=== PATIENT | male | born 1970 | race Caucasian/White ===

== ENCOUNTER 2016-10-21 14:57 | Emergency (ER) | payer OTHER ==
[~2016-10-21 14:57] MED LIST: CYCL1PAK PO; LORTA5 PO
[2016-10-21 15:16] VITALS: BP 122/87; PULSE 122; RESP 16; TEMP 98.4; O2SAT 96
[2016-10-21 15:41] VITALS: BP 112/90; PULSE 112; RESP 16; O2SAT 98
[2016-10-21] MEDS ORDERED: BUPIVACAINE HCL PF 0.5% 10 ML VIAL INFIL ONE (16:00)
[2016-10-21] MEDS ORDERED: TETANUS/DIPHTHERIA TOXOID ADULT 0.5 ML VIAL IM ONE (16:00)
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
[2016-10-21 16:25] LABS: AUTOMATED NEUTROPHIL # 3.3 TH/MM3 (1.8-7.7); BASOPHIL # 0.2 TH/MM3 (0-0.2); BASOPHIL % 2.5 % (0.0-2.0); EOSINOPHIL # 0.4 TH/MM3 (0-0.4); EOSINOPHIL % 4.9 % (0.0-4.0); HEMATOCRIT 38.7 % (39.0-51.0); HEMO FLAGS DIFF FINAL; LYMPH % 35.1 % (9.0-44.0); LYMPHOCYTE # 2.6 TH/MM3 (1.0-4.8); MEAN CORPUSCULAR HEMOGLOBIN 31.6 PG (27.0-34.0); MEAN CORPUSCULAR HGB CONC 33.7 % (32.0-36.0); MONO % 12.6 % (0.0-8.0); NEUT % 44.9 % (16.0-70.0); PLATELET COUNT 229 TH/MM3 (150-450); RED BLOOD COUNT 4.12 MIL/MM3 (4.50-5.90); RED CELL DISTRIBUTION WIDTH 13.6 % (11.6-17.2); WHITE BLOOD COUNT 7.3 TH/MM3 (4.0-11.0)
[2016-10-21 16:31] LABS: AMPHETAMINE, URINE POS (NEG); BARBITURATES, URINE NEG (NEG); COCAINE, URINE NEG (NEG)
--- NOTE | 2016-10-21 16:40 | RADRPT ---
EXAM DATE/TIME: 10/21/2016 16:27 [facility] COMPARISON: No previous studies available for comparison. INDICATIONS : Right hand, 5th digit laceration. MEDICAL HISTORY : None. SURGICAL HISTORY : None. ENCOUNTER: Initial ACUITY: 1 day PAIN SCORE: 10/10 LOCATION: Right hand, 5th digit. FINDINGS: Examination of the fifth digit of the right hand demonstrates no evidence of fracture or dislocation. No radiopaque foreign bodies are seen. There is an old fracture of any of the fifth metacarpal. Th e soft tissues are intact. CONCLUSION: 1. No radiopaque foreign body. 2. Old fracture deformity of the fifth metacarpal. Gilberto Kunz MD on October 21, 2016 at 16:37 Board Certified Radiologist. This report was verified electronically.
[2016-10-21 16:46] LABS: ANION GAP 9 MEQ/L (5-15); AST (GOT) 28 U/L (15-37); BICARBONATE 24.5 MEQ/L (21.0-32.0); BLOOD UREA NITROGEN 8 MG/DL (7-18); CHLORIDE 106 MEQ/L (98-107); GLOMERULAR FILTRATION RATE 85 ML/MIN (>89); POTASSIUM 3.6 MEQ/L (3.5-5.1); SODIUM (NA) 139 MEQ/L (136-145)
[2016-10-21 16:53] LABS: ALKALINE PHOSPHATASE 68 U/L (45-117); ALT (GPT) 22 U/L (12-78); TOTAL BILIRUBIN ADULT 0.3 MG/DL (0.2-1.0)
--- NOTE | 2016-10-21 17:06 | PD ---
Physical Exam Narrative Presents by Dr. Forbes to repair patient's finger laceration. Please see his documentation for full H&P. Data Data Last Documented VS Vital Signs Date Time Temp Pulse Resp B/P Pulse Ox O2 Delivery O2 Flow Rate FiO2 10/21/16 15:41 112 16 112/90 98 Room Air 10/21/16 15:16 98.4 Orders Complete Blood Count With Diff (10/21/16 15:49) Comprehensive Metabolic Panel (10/21/16 15:49) Psych Screen (10/21/16 15:49) Drug Screen, Random Urine (10/21/16 15:49) Alcohol (Ethanol) (10/21/16 15:49) Tetanus/Diphtheria Tox Adult (Tetanus/Di (10/21/16 16:00) Bupivacaine Pf 0.5% Inj (Marcaine Pf 0.5 (10/21/16 16:00) Finger ([id number]) (10/21/16 ) Labs Laboratory Tests Test 10/21/16 16:05 White Blood Count 7.3 TH/MM3 Red Blood Count 4.12 MIL/MM3 Hemoglobin 13.0 GM/DL Hematocrit 38.7 % Mean Corpuscular Volume 94.0 FL Mean Corpuscular Hemoglobin 31.6 PG Mean Corpuscular Hemoglobin 33.7 % Concent Red Cell Distribution Width 13.6 % Platelet Count 229 TH/MM3 Mean Platelet Volume 6.9 FL Neutrophils (%) (Auto) 44.9 % Lymphocytes (%) (Auto) 35.1 % Monocytes (%) (Auto) 12.6 % Eosinophils (%) (Auto) 4.9 % Basophils (%) (Auto) 2.5 % Neutrophils # (Auto) 3.3 TH/MM3 Lymphocytes # (Auto) 2.6 TH/MM3 Monocytes # (Auto) 0.9 TH/MM3 Eosinophils # (Auto) 0.4 TH/MM3 Basophils # (Auto) 0.2 TH/MM3 CBC Comment DIFF FINAL Differential Comment Urine Opiates Screen NEG Urine Barbiturates Screen NEG Urine Amphetamines Screen POS Urine Benzodiazepines Screen NEG Urine Cocaine Screen NEG Urine Cannabinoids Screen POS [facility] Supervised Visit with PHYLLIS: No Narrative Course The patient suffered laceration to the finger. There was no evidence to suggest foreign bodies. Visual, tactile and radiographic exams were unremarkable without evidence of foreign body at this time. There was no evidence of neurovascular injury. The patient had a normal distal vascular exam, and had full normal motor and sensory exams. There was also no evidence or tendon injury , with normal distal full range of motions, flexion, extension, abduction, adduction and opponens. There was no evidence of local joint space involvement at this time. The patient was irrigated with copious sterile normal saline and primary repair was performed. Please see procedure note. The patient was given signs and symptom warnings for infection, such as increasing pain, redness, swelling, associated heat, pus or fever. The patient was warned of possible unseen foreign body and instructed to return immediately if signs or symptoms develop. The patient was given instructions for timely follow up. The patient agreed with plan of care. Procedures Procedure Narrative LACERATION REPAIR LOCATION: Right hand fifth digit palmar surface proximal phalanx LENGTH: Approximately 2.5 cm in total length NUMBER OF STITCHES/KE: 4 stitches combination of simple mattress and simple interrupted REPAIR: Verbal consent was obtained. The area of the laceration was cleaned and prepped. Digital block was performed using Marcaine without epi.. The wound was copiously irrigated and explored without evidence of foreign body, bony involvement, ligament injury, tendon injury, or neurovascular injury. The wound was closed using 5-0 Vicryl. This was a single layer repair. A sterile dressing was applied by nurse. The patient was advised to keep the affected area as clean and dry as possible using soap and water. There were no complications. Patient tolerated the procedure well. Patient Instructions: Care For Your Absorbable Stitches (ED), General Instructions Condition: Stable Yannick Graves Oct 21, 2016 17:06
[2016-10-21 18:51] VITALS: BP 132/80; PULSE 101; RESP 18; O2SAT 98
[2016-10-21 22:37] VITALS: BP 133/75; PULSE 85; RESP 19; O2SAT 98
[2016-10-22 02:00] VITALS: BP 103/58; PULSE 85; RESP 19; O2SAT 96
[2016-10-22] MEDS ORDERED: ACETAMINOPHEN 325 MG TAB PO ONE ×2 (03:15→14:45)
[2016-10-22 06:00] VITALS: BP 105/58; PULSE 71; RESP 18; O2SAT 99
[2016-10-22 11:04] VITALS: BP 100/70; PULSE 89; RESP 18; O2SAT 97
[2016-10-22 15:21] VITALS: BP_SYST 118; BP_SYST 158; BP_DIAS 101; BP_DIAS 72; PULSE 100; PULSE 75; RESP 18; O2SAT 99
[2016-10-22 18:50] VITALS: BP 128/70; PULSE 66; RESP 20; TEMP 98.6; O2SAT 99
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
== END 2016-10-22 18:59 | disposition home or self-care (01) ==
LOC: NEPC 14:57 → NEPJ 10-22 18:59
DX: S61.216A Laceration without foreign body of right little finger without damage to nail, initial encounter (principal); F10.120 Alcohol abuse with intoxication, uncomplicated; F43.21 Adjustment disorder with depressed mood; F19.10 Other psychoactive substance abuse, uncomplicated; F17.200 Nicotine dependence, unspecified, uncomplicated; Z23 Encounter for immunization; Z87.19 Personal history of other diseases of the digestive system; Z86.69 Personal history of other diseases of the nervous system and sense organs; W45.8XXA Other foreign body or object entering through skin, initial encounter
CPT/HCPCS: 12001; 73140; 80053; 80307; 85025; 90471; 90714

== ENCOUNTER 2016-11-30 03:15 | Emergency (ER) | payer OTHER ==
[~2016-11-30] VITALS: Ht 177.8 cm; Wt 77.3 kg
[2016-11-30 03:22] VITALS: BP 101/67; PULSE 89; RESP 14; TEMP 98.2; O2SAT 95
--- NOTE | 2016-11-30 03:39 | PD ---
HPI Chief Complaint: Alcohol/Drug Intoxication Time Seen by Provider: 03:37 Travel History International Travel<30 days: No Contact w/Intl Traveler<30days: No Traveled to known affect area: No History of Present Illness HPI Patient is a 46-year-old male brought into the emergency Department under a Diaz's act due to public intoxication. Patient appears acutely intoxicated, he is cooperative and pleasant but not forthcoming with any information. PFSH Past Medical History GERD: Yes Neurologic: Yes (HX BRAIN INJURY) Seizures: Yes Past Surgical History Eye Surgery: Yes (PROSTHETIC EYE right) Other Surgery: Yes (r shoulder / SCREWS IN THE ANKLES) Social History Alcohol Use: Yes (EVERYDAY) Tobacco Use: Yes (1/2 PPD) Substance Use: Yes (OPIATES AND BENZOS) Allergies-Medications (Allergen,Severity, Reaction): Coded Allergies: No Known Allergies (Unverified , 11/30/16) Reported Meds & Prescriptions Reported Meds & Active Scripts Active Active Prescriptions or Reported Medications Unobtainable Review of Systems ROS Limitations: Intoxication Except as stated in HPI: all other systems reviewed are Neg Physical Exam Narrative GENERAL: Well-developed, well-nourished, alert, intoxicated-appearing male, resting comfortably in no acute distress. SKIN: Focused skin assessment warm/dry. Left lower inner eye lid with an area of healing ecchymosis. HEAD: Atraumatic. Normocephalic. EYES: Pupils equal and round. No scleral icterus. No injection or drainage. Extraocular movements are intact. ENT: No nasal bleeding or discharge. Mucous membranes pink and moist. NECK: Trachea midline. No JVD. CARDIOVASCULAR: Regular rate and rhythm. No murmur appreciated. RESPIRATORY: No accessory muscle use. Clear to auscultation. Breath sounds equal bilaterally. GASTROINTESTINAL: Abdomen soft, non-tender, nondistended. Hepatic and splenic margins not palpable. MUSCULOSKELETAL: No obvious deformities. No clubbing. No cyanosis. No edema. NEUROLOGICAL: Awake and alert. No obvious cranial nerve deficits. Motor grossly within normal limits. Normal speech. PSYCHIATRIC: Appropriate mood and affect; insight and judgment impaired. Data Data Last Documented VS Vital Signs Date Time Temp Pulse Resp B/P Pulse Ox O2 Delivery O2 Flow Rate FiO2 11/30/16 03:22 98.2 89 14 101/67 95 Orders Comprehensive Metabolic Panel (11/30/16 03:33) Iv Access Insert/Monitor (11/30/16 03:33) Alcohol (Ethanol) (11/30/16 03:33) Sodium Chlor 0.9% 1000 Ml Inj (Ns 1000 M (11/30/16 03:45) Sodium Chlor 0.9% 1000 Ml Inj (Ns 1000 M (11/30/16 04:45) Lipase (11/30/16 04:44) Labs Laboratory Tests Test 11/30/16 03:36 Sodium Level 137 MEQ/L Potassium Level 4.2 MEQ/L Chloride Level 105 MEQ/L Carbon Dioxide Level 24.4 MEQ/L Anion Gap 8 MEQ/L Blood Urea Nitrogen 15 MG/DL Creatinine 0.89 MG/DL Estimat Glomerular Filtration 92 ML/MIN Rate Random Glucose 105 MG/DL Calcium Level 8.2 MG/DL Total Bilirubin 0.2 MG/DL Aspartate Amino Transf 91 U/L (AST/SGOT) Alanine Aminotransferase 540 U/L (ALT/SGPT) Alkaline Phosphatase 173 U/L Total Protein 7.3 GM/DL Albumin 3.4 GM/DL Lipase 379 U/L Ethyl Alcohol Level 357 MG/DL [facility] Medical Decision Making Medical Screen Exam Complete: Yes Emergency Medical Condition: Yes Medical Record Reviewed: Yes Interpretation(s) Vital Signs Date Time Temp Pulse Resp B/P Pulse Ox O2 Delivery O2 Flow Rate FiO2 11/30/16 03:22 98.2 89 14 101/67 95 Differential Diagnosis Acute intoxication versus mood disorder versus electrolyte abnormality versus other Narrative Course Patient is a 46-year-old male presenting to the emergency department under a Diaz's act due to public intoxication. Vital signs are stable. Patient appears in no acute distress and is pleasant. Physical examination is benign, no abdominal pain on palpation. Labs ordered and pending to confirm patient is acutely intoxicated. IVF ordered. Alcohol level resulted at 357, second liter of IVF ordered. Chemistry with marked transaminitis compared to prior in September of 2016. Will check lipase, elevation likely secondary to alcohol abuse. Lipase is within normal range. Pt will be allowed to sleep it off, when he can demonstrate safe ambulation he will be discharged from the ED. He was advised to follow up with PCP regarding elevated liver enzymes. He was strongly encouraged to avoid alcohol intake to prevent liver disease. Diagnosis Primary Impression: Alcohol intoxication Qualified Code: F10.920 - Alcohol intoxication, uncomplicated Additional Impression: Abnormal transaminases Referrals: Primary Care Physician Patient Instructions: Abuse of Alcohol (ED), Alcohol Intoxication (DC), Cirrhosis (ED), General Instructions Additional Instructions: Follow-up with your primary doctor or at the [facility] Avoid intake of alcohol to prevent further liver disease Maintain adequate fluid intake Return to the emergency department for any new or worsening symptoms. Med/Other Pt SpecificInfo: No Change to Meds Scripts Unable to Obtain Active Prescriptions or Reported Meds Disposition: 01 DISCHARGE HOME Condition: Stable Cintia Mejía Nov 30, 2016 03:39
[2016-11-30] MEDS ORDERED: SODIUM CHLOR 0.9% 1000 ML INJ 1,000 ML IV ONE ×2 (03:45→04:45)
[2016-11-30 04:21] LABS: ALKALINE PHOSPHATASE 173 U/L (45-117); TOTAL BILIRUBIN ADULT 0.2 MG/DL (0.2-1.0)
[2016-11-30 04:30] LABS: ALT (GPT) 540 U/L (12-78); ANION GAP 8 MEQ/L (5-15); AST (GOT) 91 U/L (15-37); BICARBONATE 24.4 MEQ/L (21.0-32.0); BLOOD UREA NITROGEN 15 MG/DL (7-18); CHLORIDE 105 MEQ/L (98-107); GLOMERULAR FILTRATION RATE 92 ML/MIN (>89); SODIUM (NA) 137 MEQ/L (136-145)
[2016-11-30 04:31] LABS: POTASSIUM 4.2 MEQ/L (3.5-5.1)
[2016-11-30 07:23] VITALS: BP 107/75; PULSE 90; RESP 15; O2SAT 97
== END 2016-11-30 09:31 | disposition home or self-care (01) ==
LOC: NEPD 03:15
DX: F10.120 Alcohol abuse with intoxication, uncomplicated (principal); R74.0 Nonspecific elevation of levels of transaminase and lactic acid dehydrogenase [LDH]; F17.210 Nicotine dependence, cigarettes, uncomplicated
CPT/HCPCS: 80053; 80307; 83690; 96360; 96361; 99284; J7030

== ENCOUNTER 2017-07-30 17:00 | Emergency (ER) | payer MEDICAID, MEDICARE, OTHER ==
[~2017-07-30] VITALS: Ht 185.4 cm; Wt 72.0 kg
[2017-07-30 17:01] VITALS: BP 119/85; PULSE 100; RESP 18; TEMP 98.8; O2SAT 96
[2017-07-30] MEDS ORDERED: PROZ20CA11 PO (20:57)
[2017-07-30] MEDS ORDERED: TRAZ50TA12 PO (20:57)
== END 2017-07-30 17:15 | disposition left against medical advice (07) ==
LOC: NED 17:00
DX: F99 Mental disorder, not otherwise specified (principal)
CPT/HCPCS: 99281

== ENCOUNTER 2017-07-30 20:38 | Emergency (ER) | payer MEDICAID, MEDICARE ==
[2017-07-30 20:40] VITALS: BP 126/84; PULSE 108; RESP 16; TEMP 98.6; O2SAT 96
[2017-07-30] MEDS ORDERED: PROZ20CA11 PO (20:57)
[2017-07-30] MEDS ORDERED: TRAZ50TA12 PO (20:57)
[2017-07-30 20:58] VITALS: BP 134/91; PULSE 102; RESP 16; O2SAT 96
--- NOTE | 2017-07-30 21:08 | PD ---
HPI Chief Complaint: Medical Clearance Time Seen by Provider: 20:53 Travel History International Travel<30 days: No Contact w/Intl Traveler<30days: No Traveled to known affect area: No History of Present Illness HPI The patient is a 46-year-old male who presents to the emergency department for alcohol intoxication. The patient has a long-standing history of alcohol abuse, was drinking red and white wine earlier today, unable to quantify the amount of alcohol he drank. The patient has been to [facility] in the past, however, he is relapsed into drinking alcohol. He states she's been without his psychiatric medications insulin medications for the last 3 weeks. He denies any chest pain, shortness breath, nausea, vomiting , or abdominal pain. He denies any illicit drug use. He denies any suicidal or homicidal ideation. Symptoms are moderate, there are no current alleviating or exacerbating factors. PFSH Past Medical History Diminished Hearing: No GERD: Yes Neurologic: Yes (HX BRAIN INJURY) Seizures: Yes Tetanus Vaccination: < 5 Years Influenza Vaccination: No Past Surgical History Eye Surgery: Yes (PROSTHETIC EYE right) Other Surgery: Yes (r shoulder / SCREWS IN THE ANKLES) Social History Alcohol Use: Yes (EVERYDAY) Tobacco Use: Yes (1/2 PPD) Substance Use: Yes (OPIATES AND BENZOS) Allergies-Medications (Allergen,Severity, Reaction): Coded Allergies: No Known Allergies (Unverified , 11/30/16) Reported Meds & Prescriptions Reported Meds & Active Scripts Active Reported Trazodone (Trazodone HCl) 50 Mg Tab 50 Mg PO HS Prozac (Fluoxetine HCl) 20 Mg Cap 20 Mg PO DAILY Review of Systems Except as stated in HPI: all other systems reviewed are Neg HENT: No: Lightheadedness Cardiovascular: No: Chest Pain or Discomfort Respiratory: No: Shortness of Breath Gastrointestinal: No: Nausea, Vomiting, Abdominal Pain Psychiatric: Positive: Substance Abuse (alcohol abuse), No: Suicidal Ideations , Homicidal Ideation Physical Exam Narrative GENERAL: Awake, alert, pleasant 46-year-old male who appears his stated age and appears intoxicated. SKIN: Focused skin assessment warm/dry. HEAD: Atraumatic. Normocephalic. EYES: Left pupil is 3 mm and reactive. Right eye is prosthetic. ENT: No nasal bleeding or discharge. Mucous membranes pink and moist. Breath smells of alcohol. NECK: Trachea midline. No JVD. CARDIOVASCULAR: Regular rate and rhythm. No murmur appreciated. RESPIRATORY: No accessory muscle use. Clear to auscultation. Breath sounds equal bilaterally. GASTROINTESTINAL: Abdomen soft, non-tender, nondistended. MUSCULOSKELETAL: No obvious deformities. No clubbing. No cyanosis. No edema. Well-healed scar of the lateral aspect the right shoulder with obvious old- appearing deformity. NEUROLOGICAL: Awake and alert. No obvious cranial nerve deficits. Motor grossly within normal limits. Normal speech. Nonfocal. Oriented to person place, but not month or year. PSYCHIATRIC: Appears intoxicated. Data Data Last Documented VS Vital Signs Date Time Temp Pulse Resp B/P (MAP) Pulse Ox O2 Delivery O2 Flow Rate FiO2 07/30/17 20:58 102 16 134/91 (105) 96 07/30/17 20:40 98.6 Orders Orders Complete Blood Count With Diff (07/30/17 21:08) Comprehensive Metabolic Panel (07/30/17 21:08) Alcohol (Ethanol) (07/30/17 21:08) Magnesium (Mg) (07/30/17 21:08) Acetaminophen (Tylenol) (07/30/17 21:30) Ed Discharge Order (07/30/17 22:11) Labs Laboratory Tests Test 07/30/17 21:23 White Blood Count 6.9 TH/MM3 Red Blood Count 4.28 MIL/MM3 Hemoglobin 14.1 GM/DL Hematocrit 40.6 % Mean Corpuscular Volume 94.9 FL Mean Corpuscular Hemoglobin 32.9 PG Mean Corpuscular Hemoglobin Concent 34.6 % Red Cell Distribution Width 13.7 % Platelet Count 252 TH/MM3 Mean Platelet Volume 6.6 FL Neutrophils (%) (Auto) 49.9 % Lymphocytes (%) (Auto) 33.6 % Monocytes (%) (Auto) 10.5 % Eosinophils (%) (Auto) 4.7 % Basophils (%) (Auto) 1.3 % Neutrophils # (Auto) 3.4 TH/MM3 Lymphocytes # (Auto) 2.3 TH/MM3 Monocytes # (Auto) 0.7 TH/MM3 Eosinophils # (Auto) 0.3 TH/MM3 Basophils # (Auto) 0.1 TH/MM3 CBC Comment DIFF FINAL Differential Comment Blood Urea Nitrogen 14 MG/DL Creatinine 1.01 MG/DL Random Glucose 99 MG/DL Total Protein 7.3 GM/DL Albumin 3.6 GM/DL Calcium Level 8.4 MG/DL Magnesium Level 2.1 MG/DL Alkaline Phosphatase 77 U/L Aspartate Amino Transf (AST/SGOT) 38 U/L Alanine Aminotransferase (ALT/SGPT) 26 U/L Total Bilirubin 0.2 MG/DL Sodium Level 139 MEQ/L Potassium Level 3.7 MEQ/L Chloride Level 105 MEQ/L Carbon Dioxide Level 25.1 MEQ/L Anion Gap 9 MEQ/L Estimat Glomerular Filtration Rate 80 ML/MIN Ethyl Alcohol Level 277 MG/DL [facility] Medical Decision Making Medical Screen Exam Complete: Yes Emergency Medical Condition: Yes Medical Record Reviewed: Yes Interpretation(s) Laboratory Tests Test 07/30/17 21:23 White Blood Count 6.9 TH/MM3 Red Blood Count 4.28 MIL/MM3 Hemoglobin 14.1 GM/DL Hematocrit 40.6 % Mean Corpuscular Volume 94.9 FL Mean Corpuscular Hemoglobin 32.9 PG Mean Corpuscular Hemoglobin Concent 34.6 % Red Cell Distribution Width 13.7 % Platelet Count 252 TH/MM3 Mean Platelet Volume 6.6 FL Neutrophils (%) (Auto) 49.9 % Lymphocytes (%) (Auto) 33.6 % Monocytes (%) (Auto) 10.5 % Eosinophils (%) (Auto) 4.7 % Basophils (%) (Auto) 1.3 % Neutrophils # (Auto) 3.4 TH/MM3 Lymphocytes # (Auto) 2.3 TH/MM3 Monocytes # (Auto) 0.7 TH/MM3 Eosinophils # (Auto) 0.3 TH/MM3 Basophils # (Auto) 0.1 TH/MM3 CBC Comment DIFF FINAL Differential Comment Blood Urea Nitrogen 14 MG/DL Creatinine 1.01 MG/DL Random Glucose 99 MG/DL Total Protein 7.3 GM/DL Albumin 3.6 GM/DL Calcium Level 8.4 MG/DL Magnesium Level 2.1 MG/DL Alkaline Phosphatase 77 U/L Aspartate Amino Transf (AST/SGOT) 38 U/L Alanine Aminotransferase (ALT/SGPT) 26 U/L Total Bilirubin 0.2 MG/DL Sodium Level 139 MEQ/L Potassium Level 3.7 MEQ/L Chloride Level 105 MEQ/L Carbon Dioxide Level 25.1 MEQ/L Anion Gap 9 MEQ/L Estimat Glomerular Filtration Rate 80 ML/MIN Ethyl Alcohol Level 277 MG/DL Differential Diagnosis Differential diagnosis includes a intoxication, alcohol abuse, hyponatremia, hypokalemia, dehydration, substance induced mood disorder. Narrative Course IV was established, labs are drawn and sent, and the patient was placed on cardiac telemetry monitoring and continuous pulse oximetry monitoring. Alcohol level was sent to lab. Sodium level is normal. Magnesium level is normal. Alcohol level is elevated at 277. The patient will be allowed to sleep it off. The patient requested to be discharged at 10:10 PM. Nursing staff was able to and bleed the patient, he was able to ambulate without difficulty. The patient states he has money to take a cab home. Therefore, the IV was removed and the patient will be discharged. He is advised to return if symptoms worsen or progress and decrease his alcohol intake. Diagnosis Primary Impression: Alcohol intoxication Qualified Codes: F10.920 - Alcohol use, unspecified with intoxication, uncomplicated Patient Instructions: General Instructions Additional Instructions: Decrease alcohol intake. Follow-up with your primary physician. Return if symptoms worsen or progress. Follow-up at [facility]. Med/Other Pt SpecificInfo: No Change to Meds Disposition: 01 DISCHARGE HOME Condition: Stable Blayne Forbes MD Jul 30, 2017 21:08
[2017-07-30] MEDS ORDERED: ACETAMINOPHEN 500 MG CPLT PO ONE (21:30)
[2017-07-30 21:34] LABS: AUTOMATED NEUTROPHIL # 3.4 TH/MM3 (1.8-7.7); BASOPHIL # 0.1 TH/MM3 (0-0.2); BASOPHIL % 1.3 % (0.0-2.0); EOSINOPHIL # 0.3 TH/MM3 (0-0.4); EOSINOPHIL % 4.7 % (0.0-4.0); HEMATOCRIT 40.6 % (39.0-51.0); HEMOGLOBIN 14.1 GM/DL (13.0-17.0); LYMPH % 33.6 % (9.0-44.0); LYMPHOCYTE # 2.3 TH/MM3 (1.0-4.8); MEAN CELL VOLUME 94.9 FL (80.0-100.0); MEAN CORPUSCULAR HEMOGLOBIN 32.9 PG (27.0-34.0); MEAN CORPUSCULAR HGB CONC 34.6 % (32.0-36.0); MEAN PLATELET VOLUME 6.6 FL (7.0-11.0); MONO % 10.5 % (0.0-8.0); MONOCYTE # 0.7 TH/MM3 (0-0.9); NEUT % 49.9 % (16.0-70.0); PLATELET COUNT 252 TH/MM3 (150-450); RED BLOOD COUNT 4.28 MIL/MM3 (4.50-5.90); RED CELL DISTRIBUTION WIDTH 13.7 % (11.6-17.2); WHITE BLOOD COUNT 6.9 TH/MM3 (4.0-11.0)
[2017-07-30 21:50] LABS: ALBUMIN 3.6 GM/DL (3.4-5.0); BICARBONATE 25.1 MEQ/L (21.0-32.0); BLOOD UREA NITROGEN 14 MG/DL (7-18); CALCIUM 8.4 MG/DL (8.5-10.1); CHLORIDE 105 MEQ/L (98-107); CREATININE 1.01 MG/DL (0.60-1.30); GLOMERULAR FILTRATION RATE 80 ML/MIN (>89); GLUCOSE,RANDOM 99 MG/DL (74-106); MAGNESIUM 2.1 MG/DL (1.5-2.5); SODIUM (NA) 139 MEQ/L (136-145)
[2017-07-30 21:52] LABS: AST (GOT) 38 U/L (15-37)
[2017-07-30 21:55] LABS: ALKALINE PHOSPHATASE 77 U/L (45-117); ALT (GPT) 26 U/L (12-78); TOTAL BILIRUBIN ADULT 0.2 MG/DL (0.2-1.0); TOTAL PROTEIN 7.3 GM/DL (6.4-8.2)
== END 2017-07-30 22:20 | disposition home or self-care (01) ==
LOC: NEPE 20:38
DX: F10.129 Alcohol abuse with intoxication, unspecified (principal); F17.200 Nicotine dependence, unspecified, uncomplicated; Y90.8 Blood alcohol level of 240 mg/100 ml or more; Z79.899 Other long term (current) drug therapy
CPT/HCPCS: 80053; 80307; 83735; 85025; 99283